=== PATIENT | female | born 1990 | race Caucasian/White ===

== ENCOUNTER 2016-10-06 12:39 | Emergency (ER) | payer MEDICAID ==
--- NOTE | 2016-10-06 14:05 | EDPHY ---
H & P Stated Complaint: L sided abd pain;fever;vag bleeding today;has IUD Time Seen by Provider: 10/06/16 13:36 HPI/ROS: CHIEF COMPLAINT: Pelvic pain and bleeding HISTORY OF PRESENT ILLNESS: This is a healthy 26-year-old female, SAB 1 with Mirena IUD who presents with left lower abdominal pain that began around 2: 00 a.m. yesterday (12 hours ago). She took Advil and was able to fall back asleep. She woke up 5:00 a.m. with sheets soaked in blood and blood clots. She has had continued vaginal bleeding since that occurred. She continues with sharp left lower quadrant pain. She has some nausea and dizziness. She describes the pain as . She has taken a 2nd dose of Advil today. She believes that she had fever last night as she broke out in a sweat at 1 point. She has a history of an ovarian cyst rupture at age 16. She has had pelvic pain with this latest Mirena IUD which was placed 6 or 7 months ago. She is planning to have a removed next week. She has no history of STD. She denies vaginal discharge. She denies dysuria, urgency or frequency. She does not have flank pain. REVIEW OF SYSTEMS: A ten point review of systems was performed and is negative with the exception of the items mentioned in the HPI. Source: Patient Exam Limitations: No limitations - Personal History LMP (Females 10-55): IUD In Place Current Tetanus Diphtheria and Acellular Pertussis (TDAP): Yes - Medical/Surgical History Other PMH: miscarriage at age 17 - Social History Smoking Status: Never smoked Alcohol Use: Rarely Additional Social History: She has a 7-year-old son. She is employed. She is in a monogamous relationship , long-term. Her physician is Dr. Chrissy Artis at [facility] - Physical Exam Exam: General Appearance: Alert. Vital signs reviewed. Temperature 36.7, heart rate 67, respiratory rate 18, blood pressure 136/87. Oxygen saturation 99% on room air. Eyes: Pupils equal and round, no conjunctival injection, no discharge. Anicteric. ENT, Mouth: Mucous membranes are moist, no oropharyngeal erythema or edema. Neck: No lymphadenopathy, supple. Respiratory: Lungs are clear to auscultation; no wheezes, rales, or rhonchi. Cardiovascular: Regular rate and rhythm; no murmur, rub, or gallop. Gastrointestinal: Abdomen is soft with tenderness in the left lower quadrant, no masses or organomegaly, bowel sounds normal. Skin: Warm and dry, no rashes on exposed skin, normal color. Back: Nontender to palpation over the thoracolumbar spine. No CVAT. Extremities: No lower extremity edema, no calf tenderness or swelling. Neurological: Alert and oriented. Moving all four extremities easily and equally. Psychiatric: Normal affect. Constitutional: Initial Vital Signs Temperature (C) 36.7 C 10/06/16 12:42 Heart Rate 67 10/06/16 12:42 Respiratory Rate 18 10/06/16 12:42 Blood Pressure 136/87 H 10/06/16 12:42 O2 Sat (%) 99 10/06/16 12:42 O2 Delivery Mode Room Air Allergies/Adverse Reactions: No Known Allergies Allergy (Unverified 10/06/16 12:42) Home Medications: Medication Instructions Recorded Levonorgestrel [Mirena] 1 each IY 10/06/16 Medical Decision Making - Diagnostics Imaging: Pelvic ultrasound reported to me by Dr. Melchor. Please see MDM and his report. Procedures: IUD removal. Patient's IUD is malpositioned with aside arms extending into the myometrium. There is no uterine perforation identified on ultrasound. She has been having pelvic pain and bleeding for the past 16 hours. The procedure was explained to her and she gave verbal consent. I spoke with Dr. Barbra Moser who recommended IUD removal. Patient was placed in placed in lithotomy position. Using gentle traction and a sponge stick her Mirena IUD was easily removed. Procedure performed by me. ED Course/Re-evaluation: 26-year-old female with IUD in place who presents with vaginal bleeding and left lower abdominal pain. She is not . She has had a negative urine test and a quantitative beta HCG that is 2.36. CBC shows a normal hemoglobin and hematocrit. Pelvic ultrasound shows normal ovaries and no free fluid. Her IUD appears to be malpositioned, per Dr. Melchor report. It is low lying and the side arms extend into the myometrium. There is no through and through myometrial perforation. Consulted with Dr. Barbra Moser who recommends removal of the IUD. Patient is agreeable to this. IUD was removed by me (please see procedure note). The patient understands that she does not have control as a result. Differential Diagnosis: I considered a differential diagnosis that includes but is not limited to ectopic , ovarian torsion, ruptured ovarian cyst, vaginal infection, PID, urinary tract infection, and problem with IUD. - Data Points Laboratory Results: Laboratory Results 10/06/16 12:07 10/06/16 12:07 Medications Given: Discontinued Medications Acetaminophen (Tylenol) 650 mg PO EDNOW ONE Stop: 10/06/16 15:51 Last Admin: 10/06/16 16:33 Dose: Not Given Sodium Chloride (Ns) 1,000 mls @ 0 mls/hr IV ONCE ONE PRN Reason: Wide Open Stop: 10/06/16 15:31 Last Admin: 10/06/16 16:34 Dose: 1,000 mls Departure - Departure Disposition: Home, Routine, Self-Care Clinical Impression: Encounter for IUD removal Condition: Good Instructions: Pelvic Pain in Women (ED) Additional Instructions: As you know, your IUD has been removed. You can expect to have some continued cramping and bleeding. If you develop severe intractable pain, fever, heavy bleeding, any new or concerning symptoms please return for another evaluation. Contact your doctor at [facility] on Saturday and let her know that you have had the IUD removed. She should see you next week. Do not have intercourse until you have control. You are currently without control. Referrals: Barbra Moser MD [Medical Doctor] - As per Instructions
[2016-10-06 14:12] LABS: % IMMATURE GRANULYOCYTES 0.3 % (0.0-1.1); ABSOLUTE IMMATURE GRANULOCYTES 0.02 10^3/uL (0.00-0.10); ADD DIFF? NO; ADD MORPH? NO; ADD SCAN? NO; ATYPICAL LYMPHOCYTE FLAG 30 (0-99); FRAGMENT RBC FLAG 0 (0-99); HEMATOCRIT 46.6 % (38.0-47.0); HEMOGLOBIN 15.5 g/dL (12.6-16.3); LEFT SHIFT FLG 0 (0-99); LIPEMIA HEMOLYSIS FLAG 80 (0-99); MEAN CELL HEMOGLOBIN 31.1 pg (27.9-34.1); MEAN CELL HEMOGLOBIN CONCENTR. 33.3 g/dL (32.4-36.7); MEAN CELL VOLUME 93.6 fL (81.5-99.8); MEAN PLATELET VOLUME 10.9 fL (8.7-11.7); PLATELET CLUMPS FLAG 10 (0-99); PLATELET COUNT 316 10^3/uL (150-400); RED BLOOD CELL COUNT 4.98 10^6/uL (4.18-5.33); RED CELL DISTRIBUTION WIDTH 11.9 % (11.5-15.2)
[2016-10-06 14:16] LABS: COLOR PALE YELLOW; LEUKOCYTE ESTERASE,URINE NEGATIVE (NEGATIVE); NITRITE,URINE NEGATIVE (NEGATIVE)
[2016-10-06 14:21] LABS: ANION GAP 14 mEq/L (8-16); CALCIUM 9.8 mg/dL (8.5-10.4); CARBON DIOXIDE 26 mEq/l (22-31); CHLORIDE 103 mEq/L (97-110); CREATININE 0.7 mg/dL (0.6-1.0); GLOMERULAR FILTRATION RATE > 60; GLUCOSE 80 mg/dL (70-100); POTASSIUM 3.9 mEq/L (3.5-5.2); SODIUM 143 mEq/L (134-144)
[2016-10-06 15:19] VITALS: PULSE 70; O2SAT 94
[2016-10-06] MEDS ORDERED: NS 1,000 ML IV ONE (15:30)
[2016-10-06] MEDS ORDERED: ACETAMINOPHEN 325 MG TAB PO ONE (15:50)
[2016-10-06 16:33] VITALS: BP 130/79; RESP 14; TEMP 97.9
== END 2016-10-06 16:33 | disposition home or self-care (01) ==
DX: Z30.432 Encounter for removal of intrauterine contraceptive device (principal)

== ENCOUNTER 2017-03-04 15:03 | Emergency (ER) | payer MEDICAID, OTHER ==
[2017-03-04 15:11] VITALS: BP 132/67; PULSE 77; RESP 16; TEMP 98.6; O2SAT 98
[2017-03-04] MEDS ORDERED: FAMOTIDINE 20 MG in NS 100 ML IV ONE (15:13)
[2017-03-04] MEDS ORDERED: PROMETHAZINE HCL 25 MG/ML INJ IVP ONE (15:13)
[2017-03-04] MEDS ORDERED: NS 1,000 ML IV ONE (15:13)
[2017-03-04] MEDS ORDERED: ONDANSETRON 4 MG/2 ML VIAL IVP ONE (15:13)
--- NOTE | 2017-03-04 15:18 | EDPHY ---
H & P Time Seen by Provider: 03/04/17 15:07 HPI/ROS: HPI Vomiting, . 26-year-old female, G3, P2, SAB 1, presents to the emergency department with complaint of nausea with nonbilious and nonbloody vomiting for the last 24 hours. She reports multiple episodes. She reports she has had nausea with vomiting associated with for the last 7-10 days intermittently. She has had hyperemesis gravidarum in the past. This has been treated successfully with oral Zofran. Denies significant abdominal discomfort. No diarrhea. No vaginal bleeding. She states that she is 7 weeks currently. She is currently tolerating oral fluids. She is asking for prescription for Zofran. She denies any other associated signs or symptoms. ROS: Constitutional: No fever, no chills. No weakness. Gastrointestinal: No abdominal pain, as above, no diarrhea. Genitourinary: No hematuria. No dysuria or increased frequency with urination. Musculoskeletal: No back pain. Skin: No rashes. Neurological: No headache. Past medical history: As above, miscarriage at age 17. Social history: She has a 7-year-old son. No smoking. Rare alcohol. OBGARRYN is Dr. Portillo in [place]. Physical Exam: General Appearance: Alert, no distress. This patient is responding to questions appropriately and in full sentences. This patient appears well- hydrated and well-nourished. Eyes: Pupils equal and round no pallor or injection. No lid edema, erythema or injection. Gastrointestinal: Abdomen is soft and nontender, no masses, bowel sounds normal. No focal tenderness at McBurney's point. No Story sign. Neurological: Motor sensory function is grossly intact. Cranial nerves are normal. Gait is normal. Skin: Warm and dry, no rashes. Musculoskeletal: No CVA tenderness on palpation. Extremities are symmetrical. All joints range without pain or impingement. Psychiatric: No agitation. No depression. Database: EKG: Imaging: Procedures: Emergency department course: Vital signs reviewed and are normal. She is currently tolerating oral fluids. She was given 4 mg of sublingual Zofran in the emergency department. I offered her an IV and IV fluids. She declines this. She states that she feels comfortable going home with a prescription for oral Zofran. Her significant other is with her. Follow-up and return to emergency department precautions reviewed with her. All of her questions were answered. She was discharged in good condition with a prescription for Zofran. Differential Diagnosis: The differential diagnosis on this patient includes but is not limited to hyperemesis gravidarum, food-borne illness, viral gastritis. Appendicitis, bowel obstruction, pancreatitis, cholecystitis, other surgical etiology unlikely. This represents a partial list of diagnoses considered. These considerations are based on history, physical exam, past history, reassessment and diagnostic testing. Smoking Status: Never smoked Constitutional: Initial Vital Signs Temperature (C) 37 C 03/04/17 15:08 Heart Rate 77 03/04/17 15:08 Respiratory Rate 16 03/04/17 15:08 Blood Pressure 132/67 H 03/04/17 15:08 O2 Sat (%) 98 03/04/17 15:08 O2 Delivery Mode Room Air Allergies/Adverse Reactions: No Known Allergies Allergy (Unverified 10/06/16 12:42) Home Medications: Medication Instructions Recorded Ondansetron Odt [Zofran Odt 4 mg 4 mg PO Q4PRN PRN #20 tab 03/04/17 (*)] 03/04/17 Departure - Departure Disposition: Home, Routine, Self-Care Clinical Impression: Hyperemesis gravidarum Condition: Good Instructions: Hyperemesis Gravidarum (ED) Additional Instructions: Read and follow provided instructions. Follow-up with your OBGYN in [place] as needed in 1-2 days for further management. Take medication as prescribed for nausea and vomiting. Keep well hydrated. A good fluid to drink is Gatorade mixed with water in a 1-1 dilution. Return to the emergency department for vomiting and inability to keep fluids down despite medications, abdominal pain, fever or other serious concerns. Referrals: NONE *PRIMARY CARE P,. [Primary Care Provider] - As per Instructions Prescriptions: Ondansetron Odt [Zofran Odt 4 mg (*)] 4 mg PO Q4PRN PRN #20 tab PRN Reason: For Nausea & Vomiting
[2017-03-04] MEDS ORDERED: ONDANSETRON DISINTEGRATING 4 MG TAB PO ONE (15:25)
== END 2017-03-04 15:45 | disposition home or self-care (01) ==
LOC: CED 15:03
DX: O21.0 Mild hyperemesis gravidarum (principal); Z3A.01 Less than 8 weeks gestation of pregnancy

== ENCOUNTER 2018-02-19 04:40 | Emergency (ER) | payer BC, OTHER ==
[2018-02-19 05:08] LABS: PLATELET COUNT 439 10^3/uL (150-400)
[2018-02-19] MEDS ORDERED: NS 1,000 ML IV ONE (05:11)
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
[2018-02-19 06:50] VITALS: BP 103/75
== END 2018-02-19 06:50 | disposition home or self-care (01) ==
DX: R11.2 Nausea with vomiting, unspecified (principal); R19.7 Diarrhea, unspecified